=== PATIENT | male | born 1980 | race African-American/Black ===

== ENCOUNTER 2023-12-15 19:06 | Emergency (ER) | payer OTHER ==
[~2023-12-15] VITALS: Ht 175.3 cm; Wt 73.0 kg
[~2023-12-15 19:06] MED LIST: ALBU2TAB11 PO; ATOR-47 PO; CLOP75TA70 PO; DILT-29 PO; LISI20TA56 PO; METO-159 PO; MOME1AER3 INH; NITR0.4S29 SL; OXCA600T3 PO; PAR20T PO; POTA-36 PO
[2023-12-15 23:30] VITALS: BP 139/92; PULSE 84; RESP 18; TEMP 98.2; O2SAT 98
[2023-12-15] MEDS: DOXYCYCLINE 100 MG TAB/CAP PO ONE (23:32)
[2023-12-15] MEDS: IBUPROFEN 800 MG TAB PO ONE (23:33)
== END 2023-12-15 23:45 | disposition home or self-care (01) ==
LOC: ER 19:06
DX: L03.314 Cellulitis of groin (principal); I10 Essential (primary) hypertension; I25.2 Old myocardial infarction; Z88.6 Allergy status to analgesic agent; Z88.0 Allergy status to penicillin; Z88.8 Allergy status to other drugs, medicaments and biological substances